=== PATIENT | male | born 1945 | race Caucasian/White ===

== ENCOUNTER 2022-05-08 08:03 | Day surgery (SDC) | payer OTHER ==
[~2022-05-08] VITALS: Ht 175.3 cm; Wt 87.5 kg
[~2022-05-08 08:03] MED LIST: AMLO5 PO; AMLODIPINE; AMOCLA875 PO; ASPI325 PO; Alphagan P5 ML BOTHEYES; Floxin10 ML BOTHEYES; HYDR1TAB94 PO; LISI20 PO; LISINOPRIL; LOVASTATIN; MECL25 PO; PANT40 PO; Triamcinolone A15 G3 TOP
[2022-05-08 09:09] LABS: CHOL/HDL RATIO 2.4; Cholesterol 154 mg/dL (50-200); HDL Cholesterol 65 mg/dL (>39); LDL/HDL RATIO 1.2; Low Density Lipoprotein Chol 76 mg/dL (0-110); Triglycerides 65 mg/dL (30-160); Very Low Density Lipoprot Chol 13 mg/dL (6-32)
--- NOTE | 2022-05-08 10:34 | NUR ---
PT REPORT FROM [facility]. TR BAND IN PLACE. NO BLEEDING NOTED. SITE SOFT AND NON-TENDER PER PT. METOPROLOL SUCCINATE SCRIPT CALLED INTO [facility] PER DR MELÉNDEZ ORDERS. PT MEDICATED W/ 25 MG METOPROLOL SUCCINATE NOW PER DR MELÉNDEZ ORDERS. PT A&Ox4. PT SITTING UP IN CHAIR EATING BREAKFAST.
--- NOTE | 2022-05-08 11:22 | NUR ---
2cc REMOVED FROM TR BAND. NO BLEEDING NOTED. SITE SOFT AND NON-TENDER PER PT.
--- NOTE | 2022-05-08 12:07 | NUR ---
2cc REMOVED FROM TR BAND. NO BLEEDING NOTED. SITE SOFT AND NON-TENDER.
--- NOTE | 2022-05-08 12:26 | NUR ---
TR BAND FULLY DEFLATED. NO BLEEDING NOTED. SITE SOFT AND NON-TENDER.
--- NOTE | 2022-05-08 13:12 | NUR ---
PT GIVEN DC INSTRUCTIONS AND VERBALIZED UNDERSTANDING. IV OUT. CLOTH DOT PLACED. ARM BOARD AND SLING APPLIED. PT CHANGED INTO CLOTHES. PT TAKEN TO LBY VIA WC. NORM (FRIEND) TO DRIVE PT HOME.
== END 2022-05-08 13:00 | disposition home or self-care (01) ==
LOC: MHTC 08:03
PROVIDERS: Internal Medicine Cardiovascular Disease
DX: I25.118 Atherosclerotic heart disease of native coronary artery with other forms of angina pectoris (principal); I10 Essential (primary) hypertension; R00.1 Bradycardia, unspecified; M19.90 Unspecified osteoarthritis, unspecified site; Z79.899 Other long term (current) drug therapy
CPT/HCPCS: 76937; 80061; 93458; 99152; 99153; A9270; C1769; C1887; C1894; J1644; J2250; J3010; J7030; J7050; Q9967